=== PATIENT | female | born 1985 | race Caucasian/White ===

== ENCOUNTER → 2016-08-26 | Outpatient (CLI) | payer OTHER ==
[~2016-08-26] MED LIST: ACET50TA PO; ANUSOL TOP; DOCU10ELUD PO; IBUP80TA PO; MOM30SS PO
== END ==
LOC: M WUC 13:22
PROVIDERS: ATTEND Advanced Practice Midwife
DX: N91.2 Amenorrhea, unspecified (principal)

== ENCOUNTER → 2016-08-28 | Outpatient (CLI) | payer OTHER | END | disposition home or self-care (01) | LOC: M WUC 11:33 | PROVIDERS: ATTEND Advanced Practice Midwife | DX: N91.2 Amenorrhea, unspecified (principal) ==

== ENCOUNTER → 2016-08-30 | Outpatient (CLI) | payer OTHER | LOC: M WUC 10:43 | PROVIDERS: ATTEND Advanced Practice Midwife | DX: N91.2 Amenorrhea, unspecified (principal) ==

== ENCOUNTER → 2016-10-07 | Outpatient (CLI) | payer OTHER ==
[2016-10-07 18:09] LABS: BASO % 0.4 % (0.0-1.0); EOS # 0.1 K/mm3 (0.0-0.50); EOS % 0.7 % (0.0-3.0); LARGE UNSTAINED CELL # 0.1 K/mm3 (0.0-0.4); LARGE UNSTAINED CELL % 1.2 % (0.0-4.0); LYMPH # 1.7 K/mm3 (1.5-6.5); LYMPH % 21.7 % (24.0-44.0); MEAN CORPUSCULAR HEMOGLOBIN 30.3 pg (27.0-33.0); MEAN CORPUSCULAR HGB CONC 33.1 g/dl (32.0-36.5); MEAN CORPUSCULAR VOLUME 91.6 fl (80.0-96.0); MONO # 0.3 K/mm3 (0.0-0.8); MONO % 4.1 % (0.0-5.0); NEUTROPHILS # 5.5 K/mm3 (1.8-7.7); NEUTROPHILS % 71.9 % (36.0-66.0); PLATELET COUNT, AUTOMATED 265 k/mm3 (150-450); RED CELL DISTRIBUTION WIDTH 12.6 % (11.5-14.5); WHITE BLOOD COUNT 7.7 K/mm3 (4.0-10.0)
[2016-10-08 09:54] LABS: HBsAg Prenatal NEGATIVE (NEGATIVE)
[2016-10-08 14:16] LABS: CONTROL LINE INT CTR LINE PRESENT; HIV SCRN NEGATIVE (NEGATIVE); HIV SCRN1 NEGATIVE (NEGATIVE)
== END ==
LOC: M WUC 13:12
PROVIDERS: ATTEND Advanced Practice Midwife
DX: Z34.81 Encounter for supervision of other normal pregnancy, first trimester (principal)

== ENCOUNTER → 2017-01-28 | Outpatient (REF) | payer OTHER ==
[2017-02-06 11:26] LABS: SUMMARY SEE SEPARATE REPORT
== END ==
LOC: M SFHCLERA 09:10
PROVIDERS: ATTEND Physician Assistant
DX: Z02.83 Encounter for blood-alcohol and blood-drug test (principal)

== ENCOUNTER → 2017-01-28 | Outpatient (CLI) | payer OTHER ==
[2017-01-28 13:21] LABS: MEAN CORPUSCULAR HEMOGLOBIN 32.3 pg (27.0-33.0); MEAN CORPUSCULAR HGB CONC 33.6 g/dl (32.0-36.5); MEAN CORPUSCULAR VOLUME 96.2 fl (80.0-96.0); WHITE BLOOD COUNT 7.1 K/mm3 (4.0-10.0)
== END ==
LOC: M WUC 09:40
PROVIDERS: ATTEND Advanced Practice Midwife
DX: Z34.82 Encounter for supervision of other normal pregnancy, second trimester (principal)
CPT/HCPCS: 36415; 80307; 82950; 85027; 86850; 86900; 86901; G0463

== ENCOUNTER → 2017-03-27 | Outpatient (CLI) | payer OTHER ==
[~2017-03-27] MED LIST changes: +IBUP-1114 PO; +PRENTAB9 PO
--- NOTE | 2017-03-27 18:03 | REP ---
Followup OB ultrasound: 03/27/2017. Clinical history: Evaluate growth. Based on her initial ultrasound, she has an EDC of 05/02/2017, by LMP 04/29/2017. Comparison: 01/28/2017, 12/09/2016, outside studies. Today's study showed a single intrauterine station in vertex position. Cervix is largely obscured by shadowing from the skull. There is a posterior grade 1 placenta but no previa or abruption. The amniotic fluid volume is visually normal and the index is 15 cm with the normal range 7.8 - 24.9. The largest fluid pocket is 6.7 cm. Mid cord umbilical artery Doppler shows S/D ratio 2.49 with normal forward diastolic flow and resistive index of 0.60. biometry: BPD 88 cm = 32 weeks 1 day HC 30.7 cm = 34 weeks and 1 day AC 28.3 cm = 32 weeks 2 days FL 6.8 cm = 34 weeks 6 days HL 6 cm = 34 weeks 4 days This gives an average ultrasound age of 33 weeks 4 days with EDC 05/11/2017. Estimated weight 2146 grams or 4 pounds 11 ounces, is 14th percentile for dating based on LMP (EDC 04/29/2017). Heart rate 160 and regular. Anatomy screen was neither requested or performed but certain structures are seen and unremarkable. The cranial vault, lateral ventricles, choroid plexus, cavum septum pellucidum, cerebellum and cisterna magna, right ventricular outflow tract, diaphragm, left-sided stomach bubble, three-vessel cord, kidneys and bladder, transverse and longitudinal views of the entire spine. Biophysical profile: Breathing 2 Movement 2 Tone 2 Amniotic fluid volume 2 Impression: 1. Single intrauterine gestation in vertex position with skull obscuring the cervix. 2. Posterior grade 1 placenta without previa or abruption and with visually normal amniotic fluid volume and an index of 15.3. 3. Biophysical profile score 8/8. heart rate 160.4. Average ultrasound age today 33 weeks 4 days with EDC 05/11/2017, by LMP 35 weeks 2 days with EDC 04/29/2017, by initial ultrasound, EDC is 05/02/2017. The estimated weight is 14th percentile for LMP dating. Signed by Michael Sheridan MD 03/27/2017 10:26 P
== END ==
LOC: M RAD 15:57
PROVIDERS: ATTEND Obstetrics & Gynecology
DX: O26.843 Uterine size-date discrepancy, third trimester (principal); Z3A.33 33 weeks gestation of pregnancy

== ENCOUNTER → 2017-04-03 | Outpatient (REF) | payer OTHER | LOC: M LAB REF 17:10 | PROVIDERS: ATTEND Obstetrics & Gynecology | DX: Z34.83 Encounter for supervision of other normal pregnancy, third trimester (principal) ==

== ENCOUNTER → 2017-04-10 | Outpatient (CLI) | payer OTHER ==
--- NOTE | 2017-04-10 10:50 | REP ---
OB ULTRASOUND: Real-time sonographic evaluation of the gravid uterus performed. There is a single intrauterine gestation. Estimated gestational age 37 weeks 2 days, EDC 04/29/2017. Today's measurements indicate appropriate growth since 04/06/2017 exam when the estimated weight was at the 14th percentile. BPD 82 mm 32 weeks 6 days, less than 5th percentile HC 319 mm 36 weeks 0 days, 30th percentile AC 307 mm 34 weeks 5 days, 10th percentile FL 66 mm 33 weeks 6 days, less than 5th percentile HC/AC ratio 1.04 within normal range. Estimated weight 2420 grams, 9th percentile. Cervix is closed and measures 3.6 cm in length. heart rate 128 beats per minute. Amniotic fluid appears within normal limits, amniotic fluid index (CECILIA) 14.2 within normal range of 7.4 - 24.3. S/d ratio 2.85 is slightly above normal range of 1.6 - 2.6. RI 0.65 is within normal range of 0.59 - 0.75. Visualized anatomy today includes the four chamber heart, stomach, kidneys, bladder and spine which are all grossly unremarkable. position vertex. Placenta posterior and fundal and grade 2 with no previa or abruption. IMPRESSION: Relatively appropriate growth compared to prior study as discussed in detail above. Signed by Tomi Gimenez MD 04/10/2017 04:41 P
== END ==
LOC: M RAD 09:37
PROVIDERS: ATTEND Obstetrics & Gynecology
DX: O26.843 Uterine size-date discrepancy, third trimester (principal); Z3A.37 37 weeks gestation of pregnancy

== ENCOUNTER 2017-04-24 16:40 | Inpatient (IN) | payer OTHER ==
[2017-04-24] VITALS (8 sets, daily range): BP systolic 100–127; BP diastolic 60–82
[~2017-04-24] VITALS: Ht 162.6 cm; Wt 74.0 kg
[~2017-04-24 16:40] MED LIST changes: -IBUP-1114 PO; -PRENTAB9 PO
[2017-04-24] MEDS ORDERED: LACTATED RINGER'S 1000 ML IV STA (17:38)
[2017-04-24] MEDS ORDERED: LR 1,000 ML IV SCH (17:45)
[2017-04-24] MEDS ORDERED: OXYTOCIN DRIP 30 UNITS in APPROPRIATE DILUENT 1 EA IV SCH (17:45)
[2017-04-24 18:02] LABS: MEAN CORPUSCULAR HEMOGLOBIN 33.1 pg (27.0-33.0); MEAN CORPUSCULAR HGB CONC 35.8 g/dl (32.0-36.5); MEAN CORPUSCULAR VOLUME 92.5 fl (80.0-96.0); RED CELL DISTRIBUTION WIDTH 12.2 % (11.5-14.5); WHITE BLOOD COUNT 8.4 K/mm3 (4.0-10.0)
[2017-04-25] MEDS ORDERED: OXYTOCIN DRIP 30 UNITS in APPROPRIATE DILUENT 1 EA IV SCH (00:51)
[2017-04-25] MEDS: LR 1,000 ML IV SCH ×3 (00:51→16:51)
[2017-04-25] MEDS ORDERED: DIBUCAINE 1% OINTMENT 30GM TOP PRN (01:00)
[2017-04-25] MEDS ORDERED: IBUPROFEN 800 MG TAB PO PRN (01:00)
[2017-04-25] MEDS ORDERED: DOCUSATE SODIUM 100 MG CAP PO PRN (01:00)
[2017-04-25] MEDS ORDERED: ONDANSETRON 4MG/2ML VIAL (J2405) IV PRN (01:00)
[2017-04-25] MEDS ORDERED: MEASLES,MUMPS,RUBELLA VACCINE INJ (MMR-II) (90707) SC SCH (01:00)
[2017-04-25] MEDS ORDERED: PROMETHAZINE 25 MG TAB PO PRN (01:00)
[2017-04-25] MEDS ORDERED: ACETAMINOPHEN 500 MG TAB PO PRN (01:00)
[2017-04-25] MEDS ORDERED: RHOGAM 300 MCG (1500 IU) INJ (J2790) IM SCH (01:00)
[2017-04-25 01:17] VITALS: BP 107/65
[2017-04-25 06:40] VITALS: BP 98/55
[2017-04-25] MEDS: PRENATAL VITAMINS CHEWABLE TABLET PO SCH (09:00)
[2017-04-25 18:13] VITALS: BP 107/71
[2017-04-26] MEDS: LR 1,000 ML IV SCH (04:26)
[2017-04-26 05:33] VITALS: BP 127/64
[2017-04-26] MEDS ORDERED: INFLUENZA QUADRIVALENT PF VACCINE 0.5ML SYRINGE (90686) IM ONE (09:00)
[2017-04-26] MEDS: PRENATAL VITAMINS CHEWABLE TABLET PO SCH (09:00)
[2017-04-26] MEDS ORDERED: ACET50TA PO (09:58)
[2017-04-26] MEDS ORDERED: PRENTAB9 PO (09:58)
[2017-04-26] MEDS ORDERED: IBUP-1114 PO (09:58)
== END 2017-04-26 11:45 | disposition home or self-care (01) | DRG 775 ==
LOC: M LDO 16:40 → M LDI 17:30 → M OBS 04-25 00:39
PROVIDERS: ADMIT Obstetrics & Gynecology; ATTEND Obstetrics & Gynecology
PROC: 10E0XZZ Delivery of Products of Conception, External Approach (ICD-10-PCS; principal; 2017-04-24)
DX: O80 Encounter for full-term uncomplicated delivery (principal); Z3A.39 39 weeks gestation of pregnancy; Z37.0 Single live birth

== ENCOUNTER → 2017-06-13 | Outpatient (CLI) | payer OTHER ==
[~2017-06-13] MED LIST changes: +IBUP-1114 PO; +PRENTAB9 PO
--- NOTE | 2017-06-13 11:28 | REP ---
Luly Cason supine abdomen single AP view: There are no comparison studies. There is a surgical clips superimposed over the left sacroiliac joint inferiorly. There are no other radiopaque foreign bodies or postsurgical changes in the pelvis. No evidence of an IUD. The bowel gas pattern is normal. There is a large volume of fecal residue in the descending colon and ascending colon. Skeletal structures are unremarkable. Signed by Tomi Zuleta MD 06/13/2017 11:19 A
== END ==
LOC: M WUC 10:24
PROVIDERS: ATTEND Obstetrics & Gynecology
DX: Z30.431 Encounter for routine checking of intrauterine contraceptive device (principal)

== ENCOUNTER → 2018-08-18 | Outpatient (REF) | payer OTHER ==
[~2018-08-18] MED LIST changes: +MAPA500T2 PO
[2018-08-21 15:11] LABS: HPV HYBRID CAPTURE II Negative (Negative)
== END ==
LOC: M LAB REF 17:58
PROVIDERS: ATTEND Advanced Practice Midwife
DX: Z12.4 Encounter for screening for malignant neoplasm of cervix (principal); Z01.419 Encounter for gynecological examination (general) (routine) without abnormal findings

== ENCOUNTER → 2021-08-30 | Outpatient (REF) | payer OTHER ==
[~2021-08-30] MED LIST changes: -ACET50TA PO; -DOCU10ELUD PO; +DOCU5LIQ PO; +MAPA500T17 PO
== END ==
LOC: M LAB REF 16:34
PROVIDERS: ATTEND Physician Assistant
DX: J02.9 Acute pharyngitis, unspecified (principal)